=== PATIENT | male | born 1965 | race Caucasian/White ===

== ENCOUNTER 2018-01-05 11:17 | Emergency (ER) | payer SELFPAY ==
[~2018-01-05] VITALS: Ht 180.3 cm; Wt 102.0 kg
[2018-01-05 11:51] LABS: HEMATOCRIT. 43.4 % (42.0-52.0); HEMOGLOBIN. 14.8 g/dL (14.0-18.0); LYMPHOCYTES % 34.2 % (20.0-50.0); MEAN CORPUSCULAR HEMOGLOBIN 30.2 pg (28.0-32.0); MEAN CORPUSCULAR VOLUME 88.3 fL (80.0-94.0); MEAN PLATELET VOLUME 8.6 fl (7.4-10.4); MONOCYTES % 8.2 % (2.0-8.0); NEUTROPHILS % 52.6 % (40.0-76.0); PLATELET 222 x1000/uL (130-400); RED BLOOD CELL COUNT 4.91 mill/uL (4.7-6.1); RED CELL DISTRIBUTION WIDTH 14.3 % (11.6-14.6)
[2018-01-05 11:57] LABS: CHLORIDE 107 mEq/L (98-107)
[2018-01-05 12:00] LABS: ETHANOL BLOOD 28 mg/dL
[2018-01-05] MEDS ORDERED: POTASSIUM CHLORIDE 20MEQ TABLET SR PO ONE (14:30)
[2018-01-05 15:43] LABS: CLARITY URINE CLEAR (CLEAR); COLOR URINE YELLOW (YELLOW); KETONES URINE TRACE (NEGATIVE); LEUKOCYTE ESTERASE URINE 1+ (NEGATIVE); NITRITE URINE NEGATIVE (NEGATIVE); OCCULT BLOOD URINE NEGATIVE (NEGATIVE); PROTEIN URINE TRACE (NEGATIVE); SPECIFIC GRAVITY URINE 1.029 (1.005-1.030)
[2018-01-05 16:04] LABS: *AMPHETAMINES SCREEN URINE NEGATIVE (NEGATIVE); *BENZODIAZEPINES SCREEN URINE NEGATIVE (NEGATIVE); *COCAINE SCREEN URINE NEGATIVE (NEGATIVE); METHADONE URINE SCREEN NEGATIVE (NEGATIVE)
[2018-01-05 16:05] LABS: CANNABINOID URINE SCREEN NEGATIVE (NEGATIVE); OPIATES URINE SCREEN NEGATIVE (NEGATIVE); PHENCYCLIDINE URINE SCREEN NEGATIVE (NEGATIVE)
[2018-01-05 16:07] LABS: *BARBITURATES SCREEN URINE NEGATIVE (NEGATIVE)
[2018-01-05] MEDS ORDERED: ACETAMINOPHEN 325MG TABLET PO ONE (17:30)
[2018-01-06 13:15] VITALS: BP 136/86
== END 2018-01-06 13:39 | disposition home or self-care (01) ==
LOC: ER 11:17
DX: R45.851 Suicidal ideations (principal); E87.6 Hypokalemia; L55.0 Sunburn of first degree; F10.99 Alcohol use, unspecified with unspecified alcohol-induced disorder; F41.9 Anxiety disorder, unspecified; F32.9 Major depressive disorder, single episode, unspecified; F17.200 Nicotine dependence, unspecified, uncomplicated; Z90.49 Acquired absence of other specified parts of digestive tract; Z88.1 Allergy status to other antibiotic agents; Y90.1 Blood alcohol level of 20-39 mg/100 ml
CPT/HCPCS: 36415; 80048; 80305; 80307; 80329; 81003; 85025; 99284; G0482